=== PATIENT | female | born 1960 | race Asian ===

== ENCOUNTER 2016-12-24 08:28 | Day surgery (SDC) | payer OTHER ==
[~2016-12-24] VITALS: Ht 160 cm; Wt 69.3 kg
[2016-12-24] MEDS ORDERED: LOSA50TA6 PO (08:58)
[2016-12-24] MEDS ORDERED: AMLO2.5T78 PO (08:58)
[2016-12-24] MEDS ORDERED: ATEN-51 PO (08:58)
[2016-12-24] MEDS ORDERED: METF500T4 PO (08:58)
[2016-12-24] MEDS ORDERED: SIMV5TAB50 PO (08:58)
[2016-12-24 09:00] VITALS: Ht 160 cm; Wt 69.3 kg
[2016-12-24 09:24] VITALS: BP 138/68; PULSE 74; RESP 20
--- NOTE | 2016-12-24 09:55 | OPPN ---
Date/Time of Note Date/Time of Note DATE: 12/24/16 TIME: 09:54 Proc Note GI Procedure Date 12/24/16 Indication: screening/surveillance Pre-procedure Diagnosis r/o colon polyps Post-procedure Diagnosis 5 mm sessiloe polyp at mid asg colon Procedure Performed: Colonoscopy Surgeon see signature line Level Vial Setter none Anesthesia Type: moderate sedation Tourniquet Time none EBL none Transfusion required none Biopsy 1: colon polyp Grafts/Implants none Tubes/Drains none Complication(s) none Procedure Description colonoscopy under mod sed 5 mm sessile polyp at mid asg colon bx done mini hemorrhoids DIVINE ZAYAS MD Dec 24, 2016 09:55
[2016-12-24] MEDS ORDERED: MIDAZOLAM 1 MG/ML 2 ML INJ ONE ×2 (10:24)
[2016-12-24] MEDS ORDERED: FENTAnyl 50 MCG/ML VIAL ONE (10:24)
--- NOTE | 2016-12-24 11:23 | GILP ---
DATE OF PROCEDURE: NAME OF PROCEDURE: Colonoscopy. PREOPERATIVE DIAGNOSIS: Screening colonoscopy to rule out colon polyps. POSTOPERATIVE DIAGNOSES: 1. A 5 mm polyp noted in the mid descending colon. This was removed with the help of a cold biopsy forceps. 2. Minimal internal hemorrhoids, minimal external hemorrhoids noted. DESCRIPTION OF PROCEDURE: After informed written consent was obtained, the patient was asked to lie on the left lateral side, 4 mg Versed and 50 mcg of fentanyl was given as intravenous anesthesia. When the patient became somnolent, the Olympus video colonoscope was introduced into the rectum and advanced all the way to the cecum. A 5 mm flat polyp was noted in the mid descending colon. This w as removed with help of a cold biopsy forceps. Appendiceal opening appeared normal. Rest of the co kaz was examined thoroughly, which appeared normal. On the way out, retroflexion was performed. Mi nimal internal hemorrhoids, minimal external hemorrhoids were noted, and the procedure was terminate d. PLAN: Recommend wait for the pathology report. Dictated By: DIVINE SEWELL/TANO Conf#: [id number] DID#: [id number] CC: Doctor Homer;*EndCC*
== END 2016-12-24 11:05 | disposition home or self-care (01) ==
LOC: GIL 08:28
PROVIDERS: ATTEND Internal Medicine Gastroenterology
DX: Z12.11 Encounter for screening for malignant neoplasm of colon (principal); D12.2 Benign neoplasm of ascending colon; K64.8 Other hemorrhoids; K64.4 Residual hemorrhoidal skin tags
CPT/HCPCS: 45380; 82962; 88305; J2250; J3010; Z7610